=== PATIENT | male | born 1935 | race Caucasian/White ===

== ENCOUNTER 2019-01-27 15:38 | Emergency (ER) | payer MEDICARE, OTHER ==
[2019-01-27 15:54] VITALS: BP 135/68; PULSE 57
--- NOTE | 2019-01-27 16:21 | EDM.PDOC ---
ED HPI GENERAL MEDICAL PROBLEM - General Chief Complaint: Bite:Animal, Insect Stated Complaint: LIGHT HEADED, BIT BY DEER FLY Time Seen by Provider: 01/27/19 16:10 Source of Information: Reports: Patient History Limitations: Reports: No Limitations - History of Present Illness INITIAL COMMENTS - FREE TEXT/NARRATIVE: States he was bit by a horsefly yesterday Right forearm Red, warm, denies pain Took loratadine. He is complaining of feeling weak; was fine before the bite. "Im on a lot of medications". Onset: Gradual Duration: Day(s): (1) Location: Reports: Upper Extremity, Right Quality: Reports: Dull Severity: Mild Improves with: Reports: None Worsens with: Reports: None - Related Data Allergies Allergy/AdvReac Type Severity Reaction Status Date / Time Penicillins Allergy Hives Verified 09/21/16 18:04 Home Meds: Home Meds Aspirin 81 mg PO DAILY 12/27/15 [History] Mometasone Furoate [Nasonex [place]] 1 spray GIANCARLO DAILY PRN 12/27/15 [History] Terazosin [Hytrin] 10 mg PO DAILY 12/27/15 [History] atorvaSTATin [Lipitor] 10 mg PO DAILY 12/27/15 [History] Cholecalciferol (Vitamin D3) [Vitamin D3] 2,000 units PO DAILY 03/04/16 [History ] Phenazopyridine [Pyridium] 200 mg PO TID PRN #8 tab 03/04/16 [Rx] Sulfamethoxazole/Trimethoprim [Sulfamethoxazole-Tmp Ds Tablet] 1 tab PO BID [History] Ubidecarenone/Vitamin E Mixed [Ept91-Pgv E 200 mg-20 Unit Sfg] 200 mg PO DAILY 03/04/16 [History] Doxycycline [Vibramycin] 100 mg PO BID 14 Days #28 cap 01/27/19 [Rx] Past Medical History HEENT History: Reports: Other (See Below) Other HEENT History: sinus surgery Cardiovascular History: Reports: High Cholesterol, Hypertension Genitourinary History: Reports: Prostate Disorder, Retention, Urinary, UTI, Recurrent Neurological History: Reports: Other (See Below) Other Neuro History: 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 Dermatologic History: Reports: Other (See Below) Other Dermatologic History: precancerous lumps removed - Past Surgical History HEENT Surgical History: Reports: Cataract Surgery, Tonsillectomy Social & Family History - Tobacco Use Smoking Status *Q: Never Smoker - Caffeine Use Caffeine Use: Reports: None ED ROS GENERAL - Review of Systems Review Of Systems: See Below Constitutional: Reports: Weakness Respiratory: Reports: No Symptoms Cardiovascular: Reports: No Symptoms Endocrine: Reports: Fatigue GI/Abdominal: Reports: No Symptoms : Reports: No Symptoms Musculoskeletal: Reports: No Symptoms Skin: Reports: Erythema Neurological: Reports: No Symptoms Psychiatric: Reports: No Symptoms ED EXAM, ANIMAL BITE - Physical Exam Exam: See Below Exam Limited By: No Limitations General Appearance: Alert, WD/WN, No Apparent Distress Throat/Mouth: Normal Inspection, Normal Lips, Normal Gums Head: Atraumatic, Normocephalic Neck: Normal Inspection, Full Range of Motion Respiratory/Chest: No Respiratory Distress, Lungs Clear, Normal Breath Sounds Cardiovascular: Regular Rate, Rhythm Extremities: Normal Inspection, Normal Range of Motion Neurological: Alert, Oriented Psychiatric: Normal Affect, Normal Mood Skin Exam: Other (right forearm, palmar side, red, warm, approximately 6 cm by 3 cm in diameter.) Course - Vital Signs Last Recorded V/S: Last Vital Signs Temp 95.2 F L 01/27/19 15:50 Pulse 57 L 01/27/19 15:50 Resp 18 01/27/19 15:50 BP 135/68 01/27/19 15:50 Pulse Ox - Orders/Labs/Meds Labs: Laboratory Tests 01/27/19 01/27/19 Range/Units 16:24 16:24 WBC 4.2 L (4.5-11.0) K/uL RBC 4.12 L (4.30-5.90) M/uL Hgb 12.8 (12.0-15.0) g/dL Hct 39.8 L (40.0-54.0) % MCV 97 (80-98) fL MCH 31 (27-31) pg MCHC 32 (32-36) % Plt Count 148 L (150-400) K/uL Neut % (Auto) 54 (36-66) % Lymph % (Auto) 29 (24-44) % [place] % (Auto) 12 H (2-6) % Eos % (Auto) 5 H (2-4) % Baso % (Auto) 1 (0-1) % Sodium 144 (140-148) mmol/L Potassium 5.1 (3.6-5.2) mmol/L Chloride 109 H (100-108) mmol/L Carbon Dioxide 29 (21-32) mmol/L Anion Gap 11.1 (5.0-14.0) mmol/L BUN 30 H (7-18) mg/dL Creatinine 1.4 H (0.8-1.3) mg/dL Est Cr Clr Drug Dosing 35.96 mL/min Estimated GFR (MDRD) 48 L (>60) Glucose 100 (74-106) mg/dL Calcium 8.7 (8.5-10.1) mg/dL Total Bilirubin 0.5 (0.2-1.0) mg/dL AST 36 (15-37) U/L ALT 64 (12-78) U/L Alkaline Phosphatase 87 (46-116) U/L Total Protein 5.8 L (6.4-8.2) g/dL Albumin 3.1 L (3.4-5.0) g/dL Globulin 2.7 (2.3-3.5) g/dL Albumin/Globulin Ratio 1.2 (1.2-2.2) - Re-Assessments/Exams Free Text/Narrative Re-Assessment/Exam: 01/27/19 17:12 Reviewed labs with patient and his . Departure - Departure Time of Disposition: 16:53 Disposition: Home, Self-Care 01 Condition: Good Clinical Impression: Anaplasmosis - Discharge Information *PRESCRIPTION DRUG MONITORING PROGRAM REVIEWED*: Not Applicable *COPY OF PRESCRIPTION DRUG MONITORING REPORT IN PATIENT MARISSA: Not Applicable Prescriptions: Doxycycline [Vibramycin] 100 mg PO BID 14 Days #28 cap Instructions: Ehrlichiosis and Anaplasmosis, [id number] Referrals: Rafy Koehler MD [Primary Care Provider] - Forms: ED Department Discharge Additional Instructions: antibiotic two times per day for 10 days Keep hydrated Rest, and change of positions slowly Call with questions Please follow up with your provider within the next 2 weeks Return to ER if you are concerned your symptoms are worsening. - Problem List & Annotations (1) Anaplasmosis SNOMED Code(s): 891069304 Code(s): A77.49 - OTHER EHRLICHIOSIS Status: Acute Priority: Medium - Problem List Review Problem List Initiated/Reviewed/Updated: Yes
== END 2019-01-27 17:09 | disposition home or self-care (01) ==
LOC: JP.ED 15:38
DX: A77.49 Other ehrlichiosis (principal); E78.00 Pure hypercholesterolemia, unspecified; I10 Essential (primary) hypertension; Z79.82 Long term (current) use of aspirin; Z79.899 Other long term (current) drug therapy
CPT/HCPCS: 36415; 80053; 85025; 99283; 99284

== ENCOUNTER 2021-01-04 11:43 | Emergency (ER) | payer MEDICARE, OTHER ==
[2021-01-04 12:09] VITALS: BP 137/51; PULSE 50
--- NOTE | 2021-01-04 12:58 | EDM.PDOC ---
ED HPI GENERAL MEDICAL PROBLEM - General Chief Complaint: Abdominal Pain Stated Complaint: ABD PAIN Time Seen by Provider: 01/04/21 12:40 Source of Information: Reports: Patient, Family, RN, RN Notes Reviewed History Limitations: Reports: No Limitations - History of Present Illness INITIAL COMMENTS - FREE TEXT/NARRATIVE: Patient awoke at 4 AM this morning with sudden onset lower right quadrant abdominal pain. Patient states it has been a couple days since he had a bowel movement. He had shrimp last night for supper. thinks this may have been the cause of his issues. Patient states he has passed small amounts of gas. Onset: Today, Sudden Onset Date: 01/04/21 Onset Time: 04:00 Duration: Getting Worse Location: Reports: Abdomen (Lower right quadrant) Quality: Reports: Sharp Severity: Moderate Improves with: Reports: None Worsens with: Reports: None Context: Reports: Sick Contact Associated Symptoms: Reports: Nausea/Vomiting Treatments [employer]: Reports: Other (see below) (None) - Related Data Allergies Allergy/AdvReac Type Severity Reaction Status Date / Time No Known Allergies Allergy Verified 01/04/21 12:01 Home Meds: Home Meds Aspirin 81 mg PO DAILY 12/27/15 [History] Terazosin [Hytrin] 10 mg PO DAILY 12/27/15 [History] atorvaSTATin [Lipitor] 10 mg PO DAILY 12/27/15 [History] Cholecalciferol (Vitamin D3) [Vitamin D3] 2,000 units PO DAILY 03/04/16 [History] Past Medical History HEENT History: Reports: Other (See Below) Other HEENT History: sinus surgery Cardiovascular History: Reports: High Cholesterol, Hypertension Genitourinary History: Reports: Prostate Disorder, Retention, Urinary, UTI, Recurrent Neurological History: Reports: Other (See Below) Other Neuro History: 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 Dermatologic History: Reports: Other (See Below) Other Dermatologic History: precancerous lumps removed - Past Surgical History HEENT Surgical History: Reports: Cataract Surgery, Tonsillectomy Male Surgical History: Reports: None Social & Family History - Tobacco Use Tobacco Use Status *Q: Never Tobacco User - Caffeine Use Caffeine Use: Reports: None ED ROS GENERAL - Review of Systems Review Of Systems: See Below Constitutional: Denies: Fever, Chills, Malaise, Fatigue HEENT: Reports: No Symptoms Respiratory: Reports: No Symptoms Cardiovascular: Reports: No Symptoms GI/Abdominal: Reports: Abdominal Pain, Constipation (2 days since last bowel movement), Decreased Appetite, Nausea. Denies: Black Stool, Bloody Stool, Melena, Mucous in Stool : Reports: No Symptoms Musculoskeletal: Reports: No Symptoms Skin: Reports: No Symptoms Neurological: Reports: No Symptoms Psychiatric: Reports: No Symptoms Hematologic/Lymphatic: Reports: No Symptoms Immunologic: Reports: No Symptoms ED EXAM, GI/ABD - Physical Exam Exam: See Below Exam Limited By: No Limitations General Appearance: Alert, WD/WN, Moderate Distress Ears: Other (Wears hearing aids) Throat/Mouth: Normal Inspection, Normal Lips, Normal Teeth, Normal Gums Head: Atraumatic Neck: Normal Inspection, Supple, Non-Tender Respiratory/Chest: No Respiratory Distress, Lungs Clear, Normal Breath Sounds, No Accessory Muscle Use Cardiovascular: Normal Peripheral Pulses, Regular Rate, Rhythm, No Edema GI/Abdominal Exam: No Distention, No Abnormal Bruit, No Mass, Guarding (Right lower quadrant), Rebound, Abnormal Bowel Sounds (Hypo-). No: Mass, Splenomegaly Extremities: Normal Inspection, Normal Range of Motion Neurological: Alert, Oriented, CN II-XII Intact Psychiatric: Normal Affect, Normal Mood Skin Exam: Warm, Dry, Intact, Normal Color Lymphatic: No Adenopathy Course - Vital Signs Last Recorded V/S: Last Vital Signs Temp 35.9 C L 01/04/21 12:08 Pulse 50 L 01/04/21 12:08 Resp 14 01/04/21 12:08 BP 137/51 L 01/04/21 12:08 Pulse Ox 96 01/04/21 12:08 - Orders/Labs/Meds Labs: Laboratory Tests 01/04/21 01/04/21 01/04/21 Range/Units 13:25 13:25 13:25 WBC 8.0 (4.5-11.0) K/uL RBC 4.36 (4.30-5.90) M/uL Hgb 13.6 (12.0-15.0) g/dL Hct 42.1 (40.0-54.0) % MCV 97 (80-98) fL MCH 31 (27-31) pg MCHC 32 (32-36) % Plt Count 101 L (150-400) K/uL Neut % (Auto) 93.6 H (36-66) % Lymph % (Auto) 3.0 L (24-44) % [place] % (Auto) 2.7 (2-6) % Eos % (Auto) 0.6 L (2-4) % Baso % (Auto) 0.1 (0-1) % Sodium 145 (140-148) mmol/L Potassium 5.2 (3.6-5.2) mmol/L Chloride 109 H (100-108) mmol/L Carbon Dioxide 29 (21-32) mmol/L Anion Gap 12.2 (5.0-14.0) mmol/L BUN 37 H (7-18) mg/dL Creatinine 1.9 H (0.8-1.3) mg/dL Est Cr Clr Drug Dosing 23.72 mL/min Estimated GFR (MDRD) 34 L (>60) Glucose 155 H (74-106) mg/dL Lactic Acid 1.8 (0.4-2.0) mmol/L Calcium 9.3 (8.5-10.1) mg/dL Total Bilirubin 0.6 (0.2-1.0) mg/dL AST 37 (15-37) U/L ALT 56 (12-78) U/L Alkaline Phosphatase 104 (46-116) U/L Total Protein 6.3 L (6.4-8.2) g/dL Albumin 3.5 (3.4-5.0) g/dL Globulin 2.8 (2.3-3.5) g/dL Albumin/Globulin Ratio 1.2 (1.2-2.2) Amylase 99 (25-115) U/L Lipase 224 (73-393) U/L - Radiology Interpretation Free Text/Narrative:: CT of abdomen shows 3 mm stone right ureter at the midpoint CT Results Date: 01/04/21 CT Results Time: 13:35 - Re-Assessments/Exams Free Text/Narrative Re-Assessment/Exam: 01/04/21 14:03 Informed patient of lab results. Patient somewhat dehydrated as he has not had any fluids since this morning. Patient encouraged to increase fluid intake to help stone pass. Patient informed to follow-up with primary care provider if symptoms or problems persist. Departure - Departure Time of Disposition: 14:25 Disposition: Home, Self-Care 01 Condition: Fair Clinical Impression: Kidney stone on right side - Discharge Information *PRESCRIPTION DRUG MONITORING PROGRAM REVIEWED*: Not Applicable *COPY OF PRESCRIPTION DRUG MONITORING REPORT IN PATIENT MARISSA: Not Applicable Instructions: Kidney Stones, [id number] Referrals: Rafy Koehler MD [Primary Care Provider] - Forms: ED Department Discharge Additional Instructions: Increase fluid intake. Follow-up with primary care provider if problems do not improve or pain persist. Care Plan Goals: Passed kidney stone Sepsis Event Note (ED) - Evaluation Sepsis Screening Result: No Definite Risk - Focused Exam Vital Signs: Vital Signs Temp Pulse Resp BP Pulse Ox 01/04/21 12:08 35.9 C L 50 L 14 137/51 L 96 - Assessment/Plan Assessment:: Kidney stone Plan: Increase fluid intake allow stone to pass. Follow-up with primary care provider if symptoms do not improve or pain persist.
--- NOTE | 2021-01-04 13:36 | CRLCT ---
INDICATION: Abdominal pain. TECHNIQUE: CT abdomen and pelvis without intravenous contrast. Coronal and sagittal reformats. COMPARISON: None available. FINDINGS: Heavy coronary artery calcifications. Mild clustered micronodules at the lung bases. - The unenhanced liver, gallbladder, pancreas, spleen, and adrenals are unremarkable. - Relatively symmetric renal size. Bilateral renal cystic lesions, including a tiny hyperdense cyst arising from the right lower pole. Bilateral peripelvic cysts. Right mid ureter 3 mm calculus as it crosses the right iliac vessels (series 2, image 97) with mild upstream hydroureteronephrosis. No left-sided urolithiasis or hydronephrosis. Unremarkable urinary bladder. - Colonic diverticulosis without acute inflammatory changes. Moderate right colonic stool. Nondilated small bowel. No free air, free fluid, focal collection, or lymphadenopathy. - Moderate aortic atherosclerotic calcification. Lower lumbar spondylosis. IMPRESSION: Right mid ureter 3 mm calculus with mild upstream hydroureteronephrosis. Dictated by Semaj Connolly MD @ 01/04/2021 1:35:02 PM Please note that all CT scans at this facility use dose modulation, iterative reconstruction, and/or weight-based dosing when appropriate to reduce radiation dose to as low as reasonably achievable. Dictated by: Semaj Connolly MD @ 01/04/2021 13:35:09 (Electronically Signed)
== END 2021-01-04 14:26 | disposition home or self-care (01) ==
LOC: JP.ED 11:43
DX: N13.2 Hydronephrosis with renal and ureteral calculous obstruction (principal); E78.00 Pure hypercholesterolemia, unspecified; I10 Essential (primary) hypertension; Z79.82 Long term (current) use of aspirin; Z79.899 Other long term (current) drug therapy
CPT/HCPCS: 36415; 74176; 80053; 82150; 83605; 83690; 85025; 99283; 99284-25